=== PATIENT | female | born 1955 | race Caucasian/White ===

== ENCOUNTER → 2021-03-09 | Outpatient (CLI) | payer OTHER ==
[~2021-03-09] MED LIST: GABA300C18 PO; IOHEXOL 180 MG/ML 10 ML VIAL. IT ONE; LIDOCAINE 1% Multi-Dose 20 ML VIAL. ID ONE; METF500T16 PO; OMEP20CA16 PO; PRAM0.255 PO; SIMV40TA18 PO
--- NOTE | 2021-03-09 14:04 | KCIC ---
EXAM: Fluoroscopic guided lumbar puncture for CT myelography; lumbar spine CT myelogram. HISTORY: Lumbar stenosis. Left greater than right lower extremity radiculopathy.. TECHNIQUE: The risks of the procedure discussed with the patient and written and consent was obtained .. Timeout was performed. Fluoroscopic imaging of the lumbar spine was performed and a site overlying the L2-L3 was selected for needle entry. The skin in this location was sterilely prepped, draped and infiltrated with 1 percent lidocaine. A spinal needle was advanced into the thecal sac spinal needle was advanced into the thecal sac. 12 cc of Omnipaque 180 intrathecal contrast was injected. The need le was removed and a sterile bandage was placed at the needle entry site. Prone and standing upright neutral, flexion and extension fluoroscopic images were obtained. The patient was then transferred to the CT suite for the post injection CT portion of the exam. The patient was discharged in stable con dition without immediate complication. 3 fluoroscopic spot images were obtained for a total fluorosco py time 39 seconds. *One or more of the following individualized dose reduction techniques were utilized for this examina tion: 1. Automated exposure control. 2. Adjustment of the mA and/or kV according to patient size. 3. Use of iterative reconstruction technique. COMPARISON: None. FINDINGS: There is mild lumbar dextroscoliosis centered at L3. There is a 1 mL retrolisthesis of L2 o n L3 and 3 mm retrolisthesis of L3 on L4 and L4 and L5. There is degenerative endplate remodeling and osteophytosis primarily at L3-L4 and L4-L5. There is disc space narrowing predominantly along the ri ght aspect of L3-L4 and bilaterally at all 4 to L5. There is vacuum phenomenon at these levels. There is also vacuum phenomenon anteriorly at L1-L2. There are multiple endplate Schmorl's nodes. There is suspected bone demineralization. There is no acute or subacute fracture. There is no suspicious osse ous lesion. The right kidney is absent. There is aortobiiliac calcified atherosclerotic plaque. There is mild vacuum phenomenon involving the sacroiliac joints. The conus terminates at the inferior aspe ct of L1. At L1-L2, there is right anterior predominant endplate remodeling. There is [id number] right an d mild left facet arthropathy. There is no stenosis. At L2-L3, there is a disc bulge and anterior predominant endplate remodeling. There is mild to modera te right and mild left facet arthropathy. There are partial laminectomy changes. There is slight retr olisthesis. There is no stenosis. At L3-L4, there is a broad-based left lateral recess to foraminal disc protrusion and slight inferior extrusion. There is also a shallow broad-based posterior central disc protrusion and slight inferior extrusion. These are superimposed on a disc bulge and endplate remodeling. There is moderate to asael re bilateral facet arthropathy. There are partial laminectomy changes. There is mild retrolisthesis. There is mild right and severe left foraminal stenosis. There is mild to moderate central canal steno sis. At L4-L5, there are left greater than right lateral recess to extraforaminal disc protrusions and sli ght superior extrusions with osteophyte complexes. These are superimposed on a disc bulge and endplat e remodeling. There is mild right facet arthropathy. There is mild retrolisthesis. There is moderate right and severe left foraminal stenosis. There is moderate to severe central canal stenosis. At L5-S1, there is a disc bulge and endplate remodeling. There is moderate bilateral facet arthropath y. There is no stenosis. IMPRESSION: 1. Multilevel degenerative change involving the lumbar spine, described in detail above. This results in mild right and severe left foraminal and mild to moderate central canal stenosis at L3-L4 and mod erate right and severe left foraminal and moderate to severe central canal stenosis at L4-L5. 2. Lumbar scoliosis and slight listhesis at the aforementioned levels. 3. Partial laminectomy changes at L2-L3 and L3-L4. Electronically signed by: Sara Hebert MD (03/09/2021 2:02 PM) [id number]
== END | disposition home or self-care (01) ==
LOC: KCIC 12:23
PROVIDERS: ATTEND Neurological Surgery
DX: M48.061 Spinal stenosis, lumbar region without neurogenic claudication (principal); M47.26 Other spondylosis with radiculopathy, lumbar region; M41.86 Other forms of scoliosis, lumbar region; M25.78 Osteophyte, vertebrae; Z79.84 Long term (current) use of oral hypoglycemic drugs; Z79.899 Other long term (current) drug therapy; Z88.8 Allergy status to other drugs, medicaments and biological substances
CPT/HCPCS: 62304; 72132; J3490; Q9965

== ENCOUNTER → 2021-03-30 | Outpatient (CLI) | payer OTHER ==
[~2021-03-30] MED LIST changes: +ASPI1TAB21 PO; +GABA-585 PO; +GABA-689 PO; -IOHEXOL 180 MG/ML 10 ML VIAL. IT ONE; -LIDOCAINE 1% Multi-Dose 20 ML VIAL. ID ONE; +MELO7.5T29 PO
--- NOTE | 2021-03-30 12:55 | PDOC1 ---
INITIAL PAIN CONSULT DATE OF SERVICE: DOS: DATE: 03/30/21 TIME: 12:49 CHIEF COMPLAINT: Chief Complaint: Low back and left greater than right lower extremity pain HISTORY OF PRESENT ILLNESS: 65-year-old female presents history of pain low back bilateral lower extremities left greater than right for about 1 year not result of any specific injury or accident but slowly worsening over the year with standing walking sitting for longer than 10 to 15 minutes patient reports pain is waking her from sleep at night occasionally but not every night does not affect her bowel bladder control but does affect her ability to walk she occasionally uses a walker but does not have one with her today. Patient has had previous lumbar surgery with decompression at L2-3 and L3-4 in 1994 with good resolution of pain at that time but the pain over the past year is returned significant patient is recently seen her neurosurgeon which is not recommending any surgery at this time. Patient tried Excedrin as well as hydrocodone both of which decrease the pain about 20 to 30% also had physical therapy in September of this year which is not helpful and has had at one epidural injection in January of this year at an outside facility which was not helpful by her report as well. Patient rates her disability rating 0-10 10 being the worst is a 10 in all categories except for life support activities and sleeping which is a 7 self-care sexual history occupation social related recreation family activities are all rated at 10/10./Patient did have an MRI scan and a CT myelogram showing multilevel degenerative change with mild right and severe left foraminal and mild to moderate central canal stenosis at L 3-4 moderate right and severe left foraminal and moderate to severe central canal stenosis at L4-5 lumbar scoliosis and slight listhesis at the aforementioned levels with partial laminectomy changes L2-3 and at L3-4. Patient describes the pain as constant sharp stabbing radiating down the lower extremities mostly the posterior gluteus posterior lateral thigh on the left greater than right but present bilaterally with some numbness and tingling on the left lateral thigh as well. Patient reports no loss of motor function but significant fatigability of the lower extremities. PAST MEDICAL HISTORY: PMH: Dizziness, arthritis, diabetes, cigarette smoking PREVIOUS SURGERIES: Past Surgical Hx: Hysterectomy, lumbar laminectomy, cholecystectomy, nephrectomy CURRENT MEDICATIONS: Current Meds: Active Scripts Medications Dose Route/Sig Max Daily Dose Days Date Category Gabapentin (Gabapentin) 400 Mg Capsule 400 Mg PO HS 03/30/21 Reported Gabapentin (Gabapentin) 100 Mg Capsule 200 Mg PO DAILY 03/30/21 Reported Meloxicam 7.5 Mg Tablet 7.5 Mg PO BID 03/30/21 Reported Excedrin Migraine Geltab (Aspirin/Acetaminophen/Caffeine) 1 Each Tablet 1 Each PO QID 03/30/21 Reported Metformin Hcl 500 Mg Tablet 500 Mg PO BIDWMEALS 03/09/21 Reported Omeprazole 20 Mg Capsule.dr 1 Cap PO DAILY 03/09/21 Reported Mirapex (Pramipexole Di-Hcl) 0.25 Mg Tablet 1 Tab PO QHS 03/09/21 Reported ALLERGIES; Allergies: Coded Allergies: meperidine (Verified Allergy, Unknown, 03/09/21) FAMILY HISTORY: Family Hx: Alzheimer's disease, diabetes, hypertension SOCIAL HISTORY: Social Hx: Patient does not drink alcohol and smokes less than half pack cigarettes and has for 45 years continues to smoke, does not use any illegal illicit or recreational drugs is single lives locally in [facility] REVIEW OF SYSTEMS: ROS: Positive for those items mentioned in history of present illness, all systems are reviewed, otherwise negative ,and are complete full and well-documented on patient's chart. PHYSICAL EXAM: VS: Blood pressure is 142/95 pulse 111 respirations 18 temperature 98.1 F height is 5 foot 3 inches weight is 328 pounds PE: PHYSICAL EXAMINATION: GENERAL: The patient is awake, alert, oriented, appropriate, very pleasant in demeanor HEENT: Shows normocephalic, atraumatic. Extraocular movements are intact and symmetrical. Oral cavity: Mucous membranes moist and pink. Dentition is intact. NECK: Shows anterior throat supple without palpable lymphadenopathy noted. Swallow reflex symmetrical. CHEST: Shows normal on inspection. Breath sounds are clear bilaterally, distant but no rales or rhonchi bilaterally. HEART: Shows S1, S2 clear. No murmurs auscultated. ABDOMEN: Soft, nontender, nondistended, obese. No palpable organomegaly is noted. BACK: Shows spine grossly in the midline. Normal-appearing cervical lordotic curvature. There is slightly increased thoracic kyphosis, some flattening of the lumbar lordotic curvature, with well-healed surgical scarring noted. Lumbar paraspinous muscles show symmetrical on inspection, on palpation shows some moderate tenderness diffusely throughout the upper, middle and lower distribution of the paraspinous muscles bilaterally and also into the lower thoracic paraspinous musculature, firm and tender, but without specific trigger points, without radiation of pain. The patient has good rotational motion of the lumbar spine, both laterally as well as extension and flexion with mild tenderness with extension and forward flexion as well as right and left lateral rotation. No tenderness over the spinous processes, sacrum or sacroiliac regions. EXTREMITIES: Lower extremities show deep tendon reflexes 1+ in the patellar and tendo calcaneus tendons. Motor exam is 5 on a scale of 5 with right dorsiflexion, extension, quadriceps and hamstring flexion and 4/5 on the left. Peripheral pulses are 1+ posterior tibial. No peripheral edema is noted bilaterally. Lower extremities are warm and dry to touch, equal in color and appearance. Patient is able to stand but has difficulty trying to stand on her toes walks with a slight favoring gait does appear to favor the left lower extremity but not use any assistive devices with her on her visit today. SKIN: Shows warm and dry, good turgor. No edema. No sores, rashes or bruising throughout. IMPRESSION: Impression: 65-year-old female with approximate 1 year history increasing pain low back left greater than right lower extremity radicular fashion status post physical therapy as well as interventional techniques without significant improvement. CT myelogram as noted Obesity Diabetes Arthritis Cigarette smoking Plan: Options were discussed with patient including continued physical therapies interventional techniques and medication management. Patient would like to pursue a most conservative course we will order physical therapy with traction for the lumbar spine also discussed water therapy following this if not significantly reducing the pain. Patient was given information regarding spinal cord stimulation as well. Patient will follow up after physical therapy. ALEX HAYWOOD MD Mar 30, 2021 12:55
== END | disposition home or self-care (01) ==
LOC: PNCL 09:27
PROVIDERS: ATTEND Anesthesiology
DX: M54.50 Low back pain, unspecified (principal); M79.604 Pain in right leg; M19.90 Unspecified osteoarthritis, unspecified site; E11.9 Type 2 diabetes mellitus without complications; E66.9 Obesity, unspecified; Z79.82 Long term (current) use of aspirin; Z79.84 Long term (current) use of oral hypoglycemic drugs; Z79.899 Other long term (current) drug therapy; Z87.891 Personal history of nicotine dependence; Z90.49 Acquired absence of other specified parts of digestive tract; Z90.710 Acquired absence of both cervix and uterus; Z98.890 Other specified postprocedural states; Z88.8 Allergy status to other drugs, medicaments and biological substances; Z82.49 Family history of ischemic heart disease and other diseases of the circulatory system; Z83.3 Family history of diabetes mellitus
CPT/HCPCS: G0463

== ENCOUNTER → 2021-05-17 | Outpatient (CLI) | payer OTHER ==
--- NOTE | 2021-05-17 12:50 | PDOC ---
Progress Note - Pain Clinic Date of Service: DOS: DATE: 05/17/21 TIME: 12:46 Diagnosis: Dx: Lumbar radiculopathy with lumbar degenerative disease and lumbar spinal stenosis with lumbar postlaminectomy syndrome History or Present Illness: HPI: 66-year-old female returns for follow-up status post physical therapy which she is completed now with traction reports improvement by about 50% she feels with physical therapy although is beginning to return now that therapy is ended the traction was helpful in decreasing pain that was getting into her left lower extremity primarily still has some in that area but more is just in the low back now and into the legs occasionally patient reports is an 8 on scale 10 is worst average and a 6 at its least and is a 6 today. Patient reports worse with walking standing change positions once again with radiating pain more on the left leg but less pronounced than prior to the traction. Patient reports is a sharp pain in the back radiating can be constant and severe with walking standing or standing for prolonged periods greater than 15 to 20 minutes. Patient reports is better with sitting or lying down but is still waking her from sleep about every 4-6 hours. Patient reports she has been doing household activities with greater ease and comfort since the traction was performed but again the pain is still fairly significant. Patient reports no bowel or bladder incontinence. Physical Exam: VS: Blood pressures 142/84 pulse 107 respirations 18 temperature 98.3 F weight is 329 pounds. PE: PHYSICAL EXAMINATION: GENERAL: The patient is awake, alert, oriented, appropriate, very pleasant in demeanor HEENT: Shows normocephalic, atraumatic. Extraocular movements are intact and symmetrical. Oral cavity: Mucous membranes moist and pink. Dentition is intact. NECK: Shows anterior throat supple without palpable lymphadenopathy noted. Swallow reflex symmetrical. CHEST: Shows normal on inspection. Breath sounds are clear bilaterally, distant but no rales or rhonchi. HEART: Shows S1, S2 clear. No murmurs auscultated. ABDOMEN: Soft, nontender, nondistended. No palpable organomegaly is noted. BACK: Shows spine grossly in the midline. Normal-appearing cervical lordotic curvature. There is slightly increased thoracic kyphosis, some minor flattening of the lumbar lordotic curvature. Lumbar paraspinous muscles show symmetrical on inspection, on palpation shows some moderate tenderness diffusely throughout the upper, middle and lower distribution of the paraspinous muscles, but without specific trigger points, without radiation of pain. The patient has good rotational motion of the lumbar spine, both laterally as well as extension and flexion without significant difficulty. No tenderness over the spinous processes, has some moderate tenderness on the left side over the posterior superior iliac spine and the superior aspect of the sacroiliac joint but without radiation, right side is nontender. EXTREMITIES: Lower extremities show deep tendon reflexes 1+ in the patellar and tendo calcaneus tendons. Motor exam is 5 on a scale of 5 with right dorsiflexion, extension, quadriceps and hamstring flexion and 4/5 on the left. Peripheral pulses are 1 posterior tibial. No peripheral edema is noted bilaterally. Lower extremities are warm and dry. SKIN: Shows warm and dry, good turgor. No edema. No sores, rashes or bruising throughout. Procedure: Procedure: Options were discussed with the patient. Patient's old chart was reviewed as her current medication regimen updated current review of systems updated today as well. We will enroll patient for water therapy and patient has a community center near her home which is very affordable and has been through some water programs there in the distant past and would like to utilize this for water aerobics, and conditioning. We discussed that the patient will follow up in approximate 4 weeks after water therapy is completed also encouraged pressure and trigger massage to the left lumbar paraspinous musculature as well as the sacroiliac region and showed patient some stretching and strengthening exercises to do to specifically focus on this area of the back. Patient will follow up on some water therapy is completed. Medication Injected: Med Injected: None Condition at Discharge: Condition at Discharge: Condition at discharge is stable. ALEX HAYWOOD MD May 17, 2021 12:50
== END | disposition home or self-care (01) ==
LOC: PNCL 11:45
PROVIDERS: ATTEND Anesthesiology
DX: M51.16 Intervertebral disc disorders with radiculopathy, lumbar region (principal); M48.061 Spinal stenosis, lumbar region without neurogenic claudication; M96.1 Postlaminectomy syndrome, not elsewhere classified; Z79.82 Long term (current) use of aspirin; Z79.84 Long term (current) use of oral hypoglycemic drugs; Z79.899 Other long term (current) drug therapy
CPT/HCPCS: 99212; G0463

== ENCOUNTER → 2021-08-04 | Outpatient (CLI) | payer OTHER ==
--- NOTE | 2021-08-04 09:27 | PDOC ---
Progress Note - Pain Clinic Date of Service: DOS: DATE: 08/04/21 TIME: Diagnosis: Dx: Lumbar radiculopathy with lumbar degenerative disease and lumbar spinal stenosis History or Present Illness: HPI: 66-year-old female returns status post initial evaluation and physical therapy with water therapy patient reports she did this and while she felt good doing therapy whilst in the [place] she gets that the pain returns in the low back and bilateral lower extremities posterior gluteus posterior thighs lateral thighs anterior thighs medial thighs medial lower legs patient reports is a 9 on scale 10 is worse over the past week 8 on average 6 its least and is a 8 today. Patient reports still significant pain in the low back bilateral lower extremities he has had multiple interventional procedures at an outside facility with epidural steroid injections nerve blocks and other standard physical therapies as well as recent water therapy here currently. Patient reports has had traction which helps during the traction but not afterwards as well. Patient is seen her neurosurgeon who is not recommending surgery but did recommend spinal cord stimulator trial and we decided to try the water therapy first prior to evaluating for this. Patient reports pain is about the same and no significant improvement pain in the low back radiating to bilateral lower extremities aching in the low back constant severe worse with walking standing changing positions better with sitting or laying down generally does not awaken her from sleep at night when she is up in the morning the pain is returned fairly significantly and fairly suddenly. Patient reports bladder incontinence. Patient continues with anti-inflammatory medications as well as Tylenol without significant improvement as well. Patient has had tried muscle relaxants in the past as well as narcotic analgesics all with only minimal decrease in pain. Physical Exam: VS: Blood pressure is 137/91 pulse 121 respirations 18 temperature is 90.5 F height 5 feet 7 inches weight 327 pounds. PE: PHYSICAL EXAMINATION: GENERAL: The patient is awake, alert, oriented, appropriate, very pleasant in demeanor HEENT: Shows normocephalic, atraumatic. Extraocular movements are intact and symmetrical. Oral cavity: Mucous membranes moist and pink. Dentition is intact. NECK: Shows anterior throat supple without palpable lymphadenopathy noted. Swallow reflex symmetrical. CHEST: Shows normal on inspection. Breath sounds are clear bilaterally, distant but no rales or rhonchi auscultated. HEART: Shows S1, S2 clear. No murmurs auscultated. ABDOMEN: Soft, nontender, nondistended. No palpable organomegaly is noted. BACK: Shows spine grossly in the midline. Normal-appearing cervical lordotic curvature. There is mildly increased thoracic kyphosis, some moderate flattening of the lumbar lordotic curvature. Lumbar paraspinous muscles show symmetrical on inspection, on palpation shows some moderate tenderness diffusely throughout the upper, middle and lower distribution of the paraspinous muscles without specific trigger points, without radiation of pain. The patient has good rotational motion of the lumbar spine, both laterally as well as extension and flexion without significant difficulty. EXTREMITIES: Lower extremities show deep tendon reflexes 1+ in the patellar and tendo calcaneus tendons. Motor exam is 5 on a scale of 5 with right d orsiflexion, extension, quadriceps and hamstring flexion and 4/5 on the left. Peripheral pulses are 1 posterior tibial. No peripheral edema is noted bilaterally. Lower extremities are warm and dry. SKIN: Shows warm and dry, good turgor. No edema. No sores, rashes or bruising throughout. Procedure: Procedure: Options were discussed with the patient. Patient's old chart was reviewed as her current medication regimen updated current review of systems updated today as well. Patient with persistent lumbar radiculopathy status post multiple physical therapies, traction, water therapy, interventional techniques, medication management without significant improvement. Neurosurgical evaluation without surgery recommendations and recommendations for spinal cord stimulation. We will preauthorize patient for spinal cord stimulator temporary leads placement. Patient will have psychiatric evaluation prior and wants cleared from this will preauthorize patient for a spinal cord stimulator trial placement. Medication Injected: Med Injected: None Condition at Discharge: Condition at Discharge: Condition at discharge is stable. ALEX HAYWOOD MD Aug 04, 2021 09:27
== END | disposition home or self-care (01) ==
LOC: PNCL 08:48
PROVIDERS: ATTEND Anesthesiology
DX: M51.16 Intervertebral disc disorders with radiculopathy, lumbar region (principal); M48.061 Spinal stenosis, lumbar region without neurogenic claudication; Z79.82 Long term (current) use of aspirin; Z79.899 Other long term (current) drug therapy; Z88.8 Allergy status to other drugs, medicaments and biological substances
CPT/HCPCS: 99212; G0463